=== PATIENT | female | born 1970 | race Caucasian/White ===

== ENCOUNTER 2021-11-18 21:48 | Emergency (ER) | payer BC, SELFPAY ==
[2021-11-18 22:09] VITALS: BP 134/79; PULSE 66; RESP 22; TEMP 36.8; O2SAT 94; BMI 28.9
--- NOTE | 2021-11-18 22:16 | ECG_ITS ---
[facility] Test Date: 2021-11-18 Pat Name: Faviola Alejandro Department: Room: Gender: Female Apron Trimmer: : 1970 Requested By: Gaby Lopez Order Number: [id number] Joaquín MD: José Antonio Mckeon M.D. Measurements Intervals [place] Rate: 65 P: 55 MN: 119 QRS: 57 QRSD: 82 T: 29 QT: 377 QTc: 393 Interpretive Statements SINUS RHYTHM WITH SHORT [place] INTERVAL POSSIBLE RIGHT VENTRICULAR CONDUCTION DELAY [RSR (QR) IN V1/V2] SEPTAL MYOCARDIAL INFARCTION , PROBABLY OLD [40+ ms Q WAVE IN V1/V2] Compared to ECG 08/09/2018 03:05:51 Short MN interval now present Myocardial infarct finding now present Electronically Signed On 11-19-2021 16:44:46 CDT by José Antonio Mckeon M.D. [id number]
--- NOTE | 2021-11-18 22:16 | XRR_ITS ---
PROCEDURE INFORMATION: Exam: XR Chest Exam date and time: 11/18/2021 10:49 PM Age: 51 years old Clinical indication: Shortness of breath; Additional info: SOB TECHNIQUE: Imaging protocol: Radiologic exam of the chest. Views: 1 view. COMPARISON: CR Chest 1 [place] [id number] 08/09/2018 2:53 AM FINDINGS: Lungs: Lungs are mildly hyperinflated not changed from previous. Visualized portions of the lungs are clear. Pleural spaces: Unremarkable. No pleural effusion. No pneumothorax. Heart/Mediastinum: Heart is within normal limits of size. Bones/joints: There is mild scoliosis concave to the left. XR/XR chest 1V portable [id number] IMPRESSION: No acute infiltrate.
[2021-11-18 22:42] VITALS: BP 133/93; PULSE 66; RESP 20; O2SAT 91
[2021-11-18 22:49] LABS: Basophils # 0.1 10^3/uL (0.0-0.1); Basophils % 0.6 %; Eosinophils % 9.1 %; Hematocrit 43.8 % (37.0-47.0); Hemoglobin 14.7 g/dL (11.5-15.3); Lymphocytes # 3.8 10^3/uL (0.8-4.8); Lymphocytes % 34.4 %; Mean Corpuscular HGB Conc 33.6 g/dL (30.0-36.0); Mean Corpuscular Hemoglobin 30.7 pg (28.0-34.0); Mean Corpuscular Volume 91.4 fl (81-99); Mean Platelet Volume 9.2 fL (7.4-10.4); Monocytes # 0.7 10^3/uL (0.2-0.9); Monocytes % 6.1 %; Neutrophils # 5.39 10^3/uL (1.8-7.7); Neutrophils % 49.4 %; Nucleated Red Blood Cells % 0 %; Platelet Count 281 10^3/cmm (130-400); Red Blood Count 4.79 10^6/uL (4.1-5.3); Red Cell Distribution Width 12.2 % (12.1-15.1); White Blood Count 10.9 10^3/uL (4.0-10.0)
--- NOTE | 2021-11-18 22:52 | W.ED.SOB ---
HPI - SOB/Dyspnea General: Chief Complaint: Shortness of Breath/Dyspnea Stated Complaint: SOB Time Seen by Provider: 11/18/21 22:40 Source: patient Mode of arrival: ambulatory Limitations: no limitations History of Present Illness: HPI Narrative: 51-year-old female who has a long history of asthma states over the last 5 to 6 days she has been having increasing wheezing along with cough and some dyspnea. She states she did her albuterol today with some relief but states she had been worsening. She states she was has exacerbations at this time the year and is having worsening dyspnea slight pain mainly with her cough denies any fever patient is able speak full sentences here. Associated symptoms: Reports chest pain; Deny abdominal pain, fever(s), nausea or vomiting Review of Systems Const: Denies: fever(s), chills, body aches or change in appetite Eyes: Denies: blurry vision or eye discomfort ENMT: Denies: throat pain or dental pain Card: Reports: chest pain Resp: Reports: dyspnea and non-productive cough GI: Denies: abdominal pain, nausea, vomiting or diarrhea : Denies: dysuria Musc: Denies: neck pain or back pain Skin/Breast: Denies: rash Neuro: Denies: headache(s) Psych: Denies: depression [place]/Lymph: Denies: easy bruising All/Imm: Denies: urticaria PFSH ED PFSH: Medical History (Updated 11/19/21 @ 00:25 by Gaby Lopez MD) Asthma Social History Smoking and tobacco status: former smoker Physical Exam Const: COMMON NORMALS: no acute distress, patient oriented x3 and healthy appearing HENMT: COMMON NORMALS: normocephalic and atraumatic HEAD & SCALP: normocephalic and atraumatic Eye: COMMON NORMALS: Equal, round and reactive pupils present and EOMs intact bilaterally PUPIL: Yes Equal, round and reactive pupils present Neck/C-Spine: COMMON NORMALS: full ROM and supple Chest: COMMONS NORMALS: normal inspection of the chest and normal palpation of entire chest wall Resp: COMMON NORMALS: normal respiratory effort, No retractions and No use of accessory muscles AUSCULTATION: wheezes Cardio: COMMON NORMALS: regular rate, regular rhythm and No murmurs present (Cardio) RATE: regular rate RHYTHM: regular rhythm GI: COMMON NORMALS: Normal to inspection, nondistended, normoactive bowel sounds present, Soft to palpation, non-tender and no masses PALPATION: Yes Soft to palpation Extremity: COMMON NORMALS: normal to inspection and full ROM Neuro: COMMON NORMALS: patient oriented x3, moves all extremities and no focal motor deficits Psych: COMMON NORMALS: mental status grossly normal, Normal thought process present and cooperative THOUGHT PROCESS: Normal thought process present Skin: COMMON NORMALS: no rashes or lesions noted and no wounds GENERAL SKIN EXAM: no rashes or lesions noted Course Vital Signs: Vital signs: Vital Signs Temperature 98.3 F 11/18/21 22:09 Pulse Rate 65 11/19/21 00:35 Respiratory Rate 18 11/19/21 00:35 Blood Pressure 138/89 11/19/21 00:35 Pulse Oximetry 92 11/19/21 00:35 MDM - SOB/Dyspnea Medical Decision Making Patient presents here with cough along with wheezing with likely asthma exacerbation and bronchitis patient is well-appearing here we will place patient on doxycycline along with 5-day steroid burst she is to continue to breathing treatments at home she feels improved here after breathing treatments. She is stable for discharge is to follow-up with PCP and return if worsening she understands and agrees to plan. Lab Data : 11/18/21 22:40 11/18/21 22:40 Labs/Radiology: Radiology Impressions Chest X-Ray 11/18/21 22:16 IMPRESSION: No acute infiltrate. Laboratory Results WBC 10.9 10^3/uL (4.0-10.0) H 11/18/21 22:40 RBC 4.79 10^6/uL (4.1-5.3) 11/18/21 22:40 Hgb 14.7 g/dL (11.5-15.3) 11/18/21 22:40 Hct 43.8 % (37.0-47.0) 11/18/21 22:40 MCV 91.4 fl (81-99) 11/18/21 22:40 MCH 30.7 pg (28.0-34.0) 11/18/21 22:40 MCHC 33.6 g/dL (30.0-36.0) 11/18/21 22:40 RDW 12.2 % (12.1-15.1) 11/18/21 22:40 Plt Count 281 10^3/cmm (130-400) 11/18/21 22:40 MPV 9.2 fL (7.4-10.4) 11/18/21 22:40 Neut % (Auto) 49.4 % 11/18/21 22:40 Lymph % (Auto) 34.4 % 11/18/21 22:40 [place] % (Auto) 6.1 % 11/18/21 22:40 Eos % (Auto) 9.1 % 11/18/21 22:40 Baso % (Auto) 0.6 % 11/18/21 22:40 Neut # (Auto) 5.39 10^3/uL (1.8-7.7) 11/18/21 22:40 Lymph # (Auto) 3.8 10^3/uL (0.8-4.8) 11/18/21 22:40 [place] # (Auto) 0.7 10^3/uL (0.2-0.9) 11/18/21 22:40 Eos # (Auto) 1.0 10^3/uL (0.0-0.8) H 11/18/21 22:40 Baso # (Auto) 0.1 10^3/uL (0.0-0.1) 11/18/21 22:40 Nucleated RBC % (auto) 0 % 11/18/21 22:40 Nucleated RBCs # 0.0 /100WBC 11/18/21 22:40 PT 12.20 SECONDS (12.1-14.9) 11/18/21 22:40 INR 0.88 (0.8-1.2) 11/18/21 22:40 Sodium 139 mmol/L (136-145) 11/18/21 22:40 Potassium 4.0 mmol/L (3.5-5.1) 11/18/21 22:40 Chloride 103 mmol/L (98-107) 11/18/21 22:40 Carbon Dioxide 24 mmol/L (22-29) 11/18/21 22:40 Anion Gap 16.0 (5-19) 11/18/21 22:40 BUN 14 mg/dL (6-20) 11/18/21 22:40 Creatinine 0.9 mg/dL (0.5-0.9) 11/18/21 22:40 GFR Calculation 65.5 mL/min (90-130) L 11/18/21 22:40 Glucose 88 mg/dL (65-115) 11/18/21 22:40 Calculated Osmolality 288 mOsm/kg (285-295) 11/18/21 22:40 Calcium 9.3 mg/dL (8.5-10.5) 11/18/21 22:40 Total Bilirubin 0.3 mg/dL (0.15-1.2) 11/18/21 22:40 AST 19 U/L (0-32) 11/18/21 22:40 ALT 15 U/L (0-33) 11/18/21 22:40 Alkaline Phosphatase 90 IU/L (35-105) 11/18/21 22:40 Troponin T Baseline 7 ng/L (0-10) 11/18/21 22:40 NT-Pro-B Natriuret Pep 94 pg/mL (0-125) 11/18/21 22:40 Total Protein 7.8 g/dL (6.6-8.7) 11/18/21 22:40 Albumin 4.6 g/dL (3.5-5.2) 11/18/21 22:40 Globulin 3.2 g/dL (1.3-4.6) 11/18/21 22:40 EKG Data EKG 1: I personally reviewed and interpreted this EKG as follows: EKG Interpretation Date: 11/18/21 EKG interpretation time: 22:37 Interpretation: nsr hr [address] or t wave abnormalities qrs 82 qtc 389 Discharge Plan Discharge Patient Disposition: Home Clinical Impression: Asthma with exacerbation Condition: Stable Prescriptions: New prednisone 50 mg tablet 50 mg PO DAILY Qty: 5 0RF doxycycline hyclate 100 mg tablet 100 mg PO BID 7 Days Qty: 14 0RF Discharge Orders: Discharge ED (Routine); Ordered 11/19/21 Ordered By: Gaby Lopez Referrals: Arielle New DO [Primary Care Provider] - Discharge Diet: Advance as tolerated Discharge Activity: Resume usual activity Patient Instructions: Asthma Exacerbation - Adult Coding Level of Care Code ED Senior Accounting Manager for Chg Fwd Exam Comprehensive
[2021-11-18 23:02] LABS: INR 0.88 (0.8-1.2)
[2021-11-18 23:09] LABS: Troponin(5th) Baseline 7 ng/L (0-10)
[2021-11-18 23:14] LABS: Alanine Aminotransferase 15 U/L (0-33); Albumin Level 4.6 g/dL (3.5-5.2); Alkaline Phosphatase 90 IU/L (35-105); Aspartate Amino Transferase 19 U/L (0-32); Blood Urea Nitrogen 14 mg/dL (6-20); Calcium 9.3 mg/dL (8.5-10.5); Carbon Dioxide 24 mmol/L (22-29); Chloride 103 mmol/L (98-107); Globulin 3.2 g/dL (1.3-4.6); Glomerular Filtration Rate 65.5 mL/min (90-130); Glucose 88 mg/dL (65-115); Osmolality Calculated 288 mOsm/kg (285-295); Sodium 139 mmol/L (136-145); Total Bilirubin 0.3 mg/dL (0.15-1.2); Total Protein 7.8 g/dL (6.6-8.7)
[2021-11-18 23:16] LABS: NT Pro B Type Natriuretic Pept 94 pg/mL (0-125)
[2021-11-18 23:42] VITALS: BP 163/97; PULSE 121; RESP 20; O2SAT 90
[2021-11-19 00:04] VITALS: PULSE 67; RESP 17; O2SAT 89
[2021-11-19] MEDS: ipratropium-albuterol 3 mL Neb INHALATION (00:04)
[2021-11-19 00:09] VITALS: PULSE 66; RESP 16; O2SAT 91
[2021-11-19 00:12] VITALS: BP 123/69; PULSE 66; RESP 18; O2SAT 92
[2021-11-19 00:30] VITALS: BP 138/89; PULSE 65; RESP 18; O2SAT 92
[2021-11-19 00:35] VITALS: BP 138/89; PULSE 65; RESP 18; O2SAT 92
[2021-11-19] MEDS: doxycycline 100 mg Tablet PO (00:41)
== END 2021-11-19 00:39 | disposition home or self-care (01) ==
PROVIDERS: Emergency Provider Emergency Medicine; PCP Family Medicine
DX: J45.901 Unspecified asthma with (acute) exacerbation (principal); Z87.891 Personal history of nicotine dependence
CPT/HCPCS: 71045; 80053; 83880; 84484; 85025; 85610; 93005; 94640; 96374; 99285; J2930

== ENCOUNTER 2022-04-23 14:36 | Inpatient (IN) | payer BC, SELFPAY ==
[2022-04-23] VITALS (8 sets, daily range): BP systolic 111–154; BP diastolic 57–70; PULSE 87–109; RESP 14–22; TEMP 37.1–37.8; O2SAT 91–97; BMI 29.2
--- NOTE | 2022-04-23 14:46 | XR_ITS ---
WS: [id number] EXAMINATION: XR chest 1V portable [id number] REASON FOR EXAM: sob COMPARISON: [id number] ORDER DATE: 04/23/2022 2:46 PM TECHNIQUE: A single, portable frontal chest x-ray was obtained. X-RAY FINDINGS: The lungs are clear. Pleural spaces are clear. No pleural effusions or pneumothorax. Cardiomediastinal silhouette is normal. No evidence for pulmonary edema. Soft tissue and osseous structures are unremarkable. No tubes or lines are present. XR/XR chest 1V portable [id number] IMPRESSION: Unremarkable frontal portable chest x-ray.
[2022-04-23 15:48] LABS: Basophils % 0.3 %; Eosinophils # 0.2 10^3/uL (0.0-0.8); Eosinophils % 3.8 %; Hematocrit 42.8 % (37.0-47.0); Hemoglobin 13.9 g/dL (11.5-15.3); Lymphocytes % 16.4 %; Mean Corpuscular HGB Conc 32.5 g/dL (30.0-36.0); Mean Corpuscular Volume 95.5 fl (81-99); Mean Platelet Volume 9.5 fL (7.4-10.4); Monocytes # 0.4 10^3/uL (0.2-0.9); Monocytes % 7.2 %; Nucleated Red Blood Cells % 0 %; Platelet Count 255 10^3/cmm (130-400); Red Blood Count 4.48 10^6/uL (4.1-5.3); Red Cell Distribution Width 12.4 % (12.1-15.1); White Blood Count 5.8 10^3/uL (4.0-10.0)
[2022-04-23 16:11] LABS: Troponin(5th) Baseline 7 ng/L (0-10)
[2022-04-23 16:14] LABS: Alanine Aminotransferase 15 U/L (0-33); Albumin Level 4.5 g/dL (3.5-5.2); Alkaline Phosphatase 88 U/L (35-105); Anion Gap 14.1 (5-19); Aspartate Amino Transferase 18 U/L (0-32); Blood Urea Nitrogen 11 mg/dL (6-20); Calcium 9.3 mg/dL (8.5-10.5); Carbon Dioxide 29 mmol/L (22-29); Chloride 101 mmol/L (98-107); Globulin 2.6 g/dL (1.3-4.6); Glucose 75 mg/dL (65-115); Osmolality Calculated 288 mOsm/kg (285-295); Potassium 4.1 mmol/L (3.5-5.1); Sodium 140 mmol/L (136-145); Total Bilirubin 0.2 mg/dL (0.15-1.2); Total Protein 7.1 g/dL (6.6-8.7)
--- NOTE | 2022-04-23 16:46 | ECG_ITS ---
[facility] Test Date: 2022-04-23 Pat Name: Faviola Alejandro Department: Room: Gender: Female Repair Order Clerk: : 1970 Requested By: Usama Pennington Order Number: [id number] Yanes MD: Rashawn Knapp M.D. Measurements Intervals [place] Rate: 109 P: 12 [place]: 99 QRS: 17 QRSD: 84 T: 18 QT: 311 QTc: 419 Interpretive Statements SINUS TACHYCARDIA WITH SHORT [place] INTERVAL SEPTAL MYOCARDIAL INFARCTION , PROBABLY OLD [40+ ms Q WAVE IN V1/V2] Compared to ECG 11/18/2021 22:37:22 Sinus rhythm no longer present Myocardial infarct finding still present Electronically Signed On 04-24-2022 10:17:15 CLOTH EXAMINER by Rashawn Knapp M.D. [id number]
[2022-04-23 16:53] LABS: Influenza A by IFA positive (Negative); Influenza B by IFA negative (Negative)
[2022-04-23 16:54] LABS: SARS Covid-2 Antigen negative (Negative)
--- NOTE | 2022-04-23 17:40 | W.ED.SOB ---
HPI - SOB/Dyspnea General: Chief Complaint: Upper Respiratory Infection Stated Complaint: SOB Time Seen by Provider: 04/23/22 17:25 Source: patient Limitations: no limitations History of Present Illness: HPI Narrative: See nursing assessments. Patient with complaints of shortness of breath that started today. Patient started running fever last night. She states she has had frequent cough productive of clear sputum. She states she is had mild chills. She states she has a past medical history of asthma. She states she is a former smoker and quit a long time ago. Denies any recent tobacco use. Associated symptoms: Reports fever(s); Deny abdominal pain, chest pain, nausea, palpitations or vomiting Review of Systems Const: Reports: fever(s), chills and body aches Eyes: Denies: change in vision ENMT: Denies: throat pain Card: Denies: chest pain or palpitations Resp: Reports: dyspnea and productive cough (Clear sputum) GI: Denies: abdominal pain, nausea or vomiting : Denies: flank pain Musc: Denies: neck pain, back pain or extremity swelling Skin/Breast: Denies: rash or pruritus Neuro: Denies: headache(s) or numbness in extremities Psych: Denies: anxiety [place]/Lymph: Denies: enlarged lymph nodes PFSH ED PFSH: Medical History Asthma Social History Smoking and tobacco status: former smoker Supplemental PFSH Information: Past medical history of asthma Physical Exam Const: COMMON NORMALS: patient oriented x3, no limitations and well nourished GENERAL APPEARANCE: cooperative OTHER: Mild fever HENMT: COMMON NORMALS: normocephalic and atraumatic HEAD & SCALP: normocephalic and atraumatic FACE & SINUS: normal facial exam Eye: COMMON NORMALS: EOMs intact bilaterally Neck/C-Spine: COMMON NORMALS: full ROM, no lymphadenopathy, supple and no meningeal signs GENERAL: Yes normal visual inspection Lymph: LYMPHATIC: no lymphadenopathy noted Chest: COMMONS NORMALS: normal inspection of the chest and normal palpation of entire chest wall CHEST: No Ecchymosis present and No rash Resp: OTHER: Patient with diffuse in-store next-door wheezes. Patient does sound somewhat tight. Patient is mildly anxious due to her shortness of breath and wheezing. Cardio: COMMON NORMALS: regular rate, regular rhythm and Peripheral pulses 2+ throughout JUGULAR VENOUS DISTENTION: no JVD RATE: regular rate RHYTHM: regular rhythm PERIPHERAL PULSES: Peripheral pulses 2+ throughout GI: COMMON NORMALS: Normal to inspection, nondistended, normoactive bowel sounds present and non-tender : COMMON NORMALS: Yes no CVA tenderness BLADDER/KIDNEY EXAM: Yes no CVA tenderness Back/Pelvis: COMMON NORMALS: no CVA tenderness Extremity: COMMON NORMALS: normal to inspection, full ROM and capillary refill normal Neuro: COMMON NORMALS: patient oriented x3, CN's II-XII intact bilaterally, no focal motor deficits and no sensory deficits noted MENINGEAL SIGNS: Yes no meningeal signs Psych: COMMON NORMALS: mental status grossly normal and Normal thought process present THOUGHT PROCESS: Normal thought process present OTHER: Mild anxiety. Skin: COMMON NORMALS: no rashes or lesions noted and no wounds GENERAL SKIN EXAM: no rashes or lesions noted Course Vital Signs: Vital signs: Vital Signs Temperature 100.1 F H 04/23/22 16:05 Pulse Rate 106 H 04/23/22 17:53 Respiratory Rate 22 H 04/23/22 17:50 Blood Pressure 150/62 04/23/22 18:00 Pulse Oximetry 92 04/23/22 18:00 Oxygen Delivery Me thod 04/23/22 18:00 Oxygen Flow Rate 1 04/23/22 18:00 MDM - SOB/Dyspnea Medical Decision Making Patient tested positive for influenza A. Patient also has exacerbation of her asthma with story and x-ray wheezes. Oxygen saturation ranges from 89 to 91% on room air. 1820: Patient was rechecked. Lungs are clear but oxygen saturation is 93% on 2 L by nasal cannula. Patient does not have oxygen at home. She states her nebulizer does not work very well. Therefore, patient will need to be observed overnight on oxygen and continue nebulizers as needed. Case discussed with hospitalist Dr. Olmedo. He agreed to observe the patient in the hospital. Lab Data 04/23/22 15:21 04/23/22 15:21 Labs/Radiology: Radiology Impressions Chest X-Ray 04/23/22 14:46 IMPRESSION: Unremarkable frontal portable chest x-ray. Laboratory Results WBC 5.8 10^3/uL (4.0-10.0) 04/23/22 15: RBC 4.48 10^6/uL (4.1-5.3) 04/23/22 15: Hgb 13.9 g/dL (11.5-15.3) 04/23/22 15:21 Hct 42.8 % (37.0-47.0) 04/23/22 15:21 MCV 95.5 fl (81-99) 04/23/22 15: MCH 31.0 pg (28.0-34.0) 04/23/22 15: MCHC 32.5 g/dL (30.0-36.0) 04/23/22 15: RDW 12.4 % (12.1-15.1) 04/23/22 15: Plt Count 255 10^3/cmm (130-400) 04/23/22 15:21 MPV 9.5 fL (7.4-10.4) 04/23/22 15: Neut % (Auto) 72.0 % 04/23/22 15:21 Lymph % (Auto) 16.4 % 04/23/22 15:21 [place] % (Auto) 7.2 % 04/23/22 15: Eos % (Auto) 3.8 % 04/23/22 15: Baso % (Auto) 0.3 % 04/23/22 15:21 Neut # (Auto) 4.20 10^3/uL (1.8-7.7) 04/23/22 15:21 Lymph # (Auto) 1.0 10^3/uL (0.8-4.8) 04/23/22 15:21 [place] # (Auto) 0.4 10^3/uL (0.2-0.9) 04/23/22 15:21 Eos # (Auto) 0.2 10^3/uL (0.0-0.8) 04/23/22 15:21 Baso # (Auto) 0.0 10^3/uL (0.0-0.1) 04/23/22 15:21 Nucleated RBC % (auto) 0 % 04/23/22 15: Nucleated RBCs # 0.0 /100WBC 04/23/22 15:21 Sodium 140 mmol/L (136-145) 04/23/22 15:21 Potassium 4.1 mmol/L (3.5-5.1) 04/23/22 15:21 Chloride 101 mmol/L (98-107) 04/23/22 15:21 Carbon Dioxide 29 mmol/L (22-29) 04/23/22 15:21 Anion Gap 14.1 (5-19) 04/23/22 15:21 BUN 11 mg/dL (6-20) 04/23/22 15:21 Creatinine 1.0 mg/dL (0.5-0.9) H 04/23/22 15:21 GFR Calculation 58.0 mL/min (90-130) L 04/23/22 15:21 Glucose 75 mg/dL (65-115) 04/23/22 15:21 Calculated Osmolality 288 mOsm/kg (285-295) 04/23/22 15:21 Calcium 9.3 mg/dL (8.5-10.5) 04/23/22 15:21 Total Bilirubin 0.2 mg/dL (0.15-1.2) 04/23/22 15:21 AST 18 U/L (0-32) 04/23/22 15:21 ALT 15 U/L (0-33) 04/23/22 15:21 Alkaline Phosphatase 88 U/L (35-105) 04/23/22 15:21 Troponin T Baseline 7 ng/L (0-10) 04/23/22 15:21 Troponin T 120 Minute 7.18 ng/L (0-10) 04/23/22 17:38 Total Protein 7.1 g/dL (6.6-8.7) 04/23/22 15:21 Albumin 4.5 g/dL (3.5-5.2) 04/23/22 15:21 Globulin 2.6 g/dL (1.3-4.6) 04/23/22 15:21 Influenza Type A Ag positive (Negative) H 04/23/22 Unknown Influenza Type B Ag negative (Negative) 04/23/22 Unknown SARS-CoV-2 Ag (Rapid) negative (Negative) 04/23/22 Unknown Imaging Data CXR: Radiologist's impression: Ordering Provider/Ordering MD: Usama Pennington Date of Service: 04/23/22 Procedure(s): XR chest 1V portable [id number] Accession Number(s): [id number] Report Number: [id number] WS: [id number] EXAMINATION: XR chest 1V portable [id number] REASON FOR EXAM: sob COMPARISON: [id number] ORDER DATE:? 04/23/2022 2:46 PM TECHNIQUE: A single, portable frontal chest x-ray was obtained. X-RAY FINDINGS: The lungs are clear. Pleural spaces are clear. No pleural effusions or pneumothorax. Cardiomediastinal silhouette is normal. No evidence for pulmonary edema. Soft tissue and osseous structures are unremarkable. No tubes or lines are present. XR/XR chest 1V portable [id number] IMPRESSION: ?Unremarkable frontal portable chest x-ray. ? Dictated By: Dell Mckenzie MD Signed By: Dell Mckenzie MD Signed Date/Time: 04/23/22 1520 EKG Data EKG 1: I personally reviewed and interpreted this EKG as follows: EKG Interpretation Date: 04/23/22 EKG interpretation time: 17:50 Interpretation: Heart rate of 1Impression sinus tachycardia overnight. Normal [place] interval. Artifact from tremor. Normal axis. Normal QRS. Normal ST segment. Normal QT interval. Normal [place] interval. Normal P waves, normal T waves. Discharge Plan Discharge Patient Disposition: Placed in Observation Clinical Impression: Influenza, Shortness of breath at rest Asthma Qualifiers: Asthma severity: moderate Asthma persistence: unspecified Asthma complication type: with acute exacerbation Qualified Code(s): J45.901 - Unspecified asthma with (acute) exacerbation Coding Level of Care Code ED Hr Receptionist for [facility] Fwarielle History Comprehensive Exam Comprehensive Medical Decision Making Moderate Complexity
[2022-04-23] MEDS: ipratropium-albuterol 3 mL Neb INHALATION ×2 (17:46→20:49)
[2022-04-23] MEDS: oseltamivir phosphate 75 mg Capsule PO (17:48)
[2022-04-23] MEDS: acetaminophen 325 mg Tablet 650 MG PO (17:48)
[2022-04-23 18:19] LABS: Troponin 5 2HR 7.18 ng/L (0-10)
[2022-04-23 18:27] LABS: Troponin 5 2HR Delta 0.18 ABS# (0-10)
--- NOTE | 2022-04-23 18:32 | P.HP_ITS ---
Providers/Chief Complaint Primary Care Provider: Arielle New DO Chief Complaint: SOB History of Present Illness Faviola Alejandro is a 51 year old female with past medical history of asthma was brought in with chief complaint of acutely worsening shortness of breath, cough with productive whitish sputum started today, experiencing subjective fever with chills,since yesterday. X-ray chest done in the ER; has not shown any acute infiltrates, no effusion no pneumothorax. Pertinent labs: WBC 5.8, H&H plt : 255 , sodium 140 potassium 4.1, BUN serum creatinine :03/18 , Influenza A+ Patient received nebs as well as Solu-Medrol in the ER Review of Systems General: Reports: 10 or more systems reviewed and unremarkable except in HPI and below Const: Reports: fever(s), chills and body aches; Denies: change in appetite or diaphoresis Card: Denies: palpitations, edema, swelling of feet/ankles, dyspnea on exertion, orthopnea or leg pain with exertion Resp: Reports: dyspnea, productive cough and wheezing; Denies: pain on inspiration GI: Denies: abdominal pain, nausea, vomiting, diarrhea or constipation : Denies: flank pain Musc: Denies: back pain, extremity pain or extremity swelling Neuro: Denies: headache(s), difficulty walking or confusion Medications/Allergies Home Medications Medication Instructions Recorded Confirmed Last Taken Type prednisone 50 mg tablet 50 mg PO DAILY #5 tabs 11/19/21 Unknown Rx Allergies Allergy/AdvReac Type Severity Reaction Status Date / Time Latex, Natural Rubber Allergy ALGY-Hives Verified 11/18/21 22:09 PFSH Acute PFSH: Medical History Asthma Social History Smoking and tobacco status: former smoker Vitals/I&O/Wt Last Vital Signs Temp 100.1 F H 04/23/22 16:05 Pulse 106 H 04/23/22 17:53 Resp 22 H 04/23/22 17:50 BP 150/62 04/23/22 18:00 Pulse Ox 92 04/23/22 18:00 O2 Del Method 04/23/22 18:00 O2 Flow Rate 1 04/23/22 18:00 Weight last 48 hrs Weight 72.575 kg Physical Exam Const: COMMON NORMALS: patient oriented x3 Resp: OTHER: Tachypneic tachycardic, diminished air entry bilaterally, minimal expiratory wheezing Cardio: COMMON NORMALS: regular rate, regular rhythm, S1 normal heart sound present, S2 normal heart sound present, No gallops present (Cardio), No murmurs present (Cardio), No rub (Cardio) and Peripheral pulses 2+ throughout RATE: regular rate RHYTHM: regular rhythm HEART SOUNDS: S1 normal heart sound present and S2 normal heart sound present PERIPHERAL PULSES: Peripheral pulses 2+ throughout GI: COMMON NORMALS: Normal to inspection, nondistended, normoactive bowel sounds present, Soft to palpation, non-tender, No hepatosplenomegaly present and no masses AUSCULTATION: Yes normoactive bowel sounds PALPATION: Yes Soft to palpation and Yes No hepatosplenomegaly present RECTAL EXAM: deferred Extremity: COMMON NORMALS: no clubbing, cyanosis or edema and no pedal edema Data 04/23/22 15:21 04/23/22 15:21 A&P Assessment and plan (1) Influenza: (2) Asthma exacerbation: Plan 51 year old female with past medical history of asthma was brought in with chief complaint of acutely worsening shortness of breath, cough with productive whitish sputum started today, experiencing subjective fever with chills,since yesterday. Patient has received flu shot this year. Assessment: Acute asthma exacerbation secondary to influenza Influenza A Hypertension Plan: Follow procalcitonin Continue Solu-Medrol 60 every 6 DuoNebs Magnesium sulfate IV 2 g Continue Tamiflu Monitor x-ray chest Antitussives DVT prophylaxis: On Lovenox CODE STATUS; full code Attestations Medical Necessity Statement*: Patient is in hospital for management of asthma exacerbation and influenza. Time Spent in Patient Care: Greater than 35 minutes (>than 50% of time spe nt in counselling and/or direct pt care on unit) . Coding Level of Care Code Acute Rigging Up Man for Jeang Fwd Exam Expanded Problem Focused Diagnoses Influenza J11.1 Asthma exacerbation J45.901
--- NOTE | 2022-04-23 19:22 | PC.NURSE ---
Gave report to Carlos Merida
[2022-04-23] MEDS: enoxaparin 40 mg/0.4 mL Syringe SUBCUT (19:33)
[2022-04-23] MEDS: magnesium sulfate premix 2 GM/50 ML PIGGYBACK IV (19:33)
[2022-04-23] MEDS: benzonatate 100 mg Capsule 200 MG PO (20:20)
[2022-04-23] MEDS: sodium chloride 0.9% 1,000 ML 100 ML IV (20:21)
[2022-04-23 21:13] LABS: Troponin 5 6HR 10.33 ng/L (0-10)
[2022-04-23 21:14] LABS: Troponin 5 6HR Delta 3.33 ng/L (0-12)
[2022-04-24] VITALS (10 sets, daily range): BP systolic 110–143; BP diastolic 65–77; PULSE 67–91; RESP 14–26; TEMP 36.4–37.1; O2SAT 91–97
[2022-04-24] MEDS: ipratropium-albuterol 3 mL Neb INHALATION ×4 (01:37→20:31)
[2022-04-24 02:14] LABS: Basophils % 0.2 %; Eosinophils % 0.2 %; Hematocrit 41.9 % (37.0-47.0); Hemoglobin 13.5 g/dL (11.5-15.3); Lymphocytes # 0.5 10^3/uL (0.8-4.8); Lymphocytes % 9.1 %; Mean Corpuscular HGB Conc 32.2 g/dL (30.0-36.0); Mean Corpuscular Hemoglobin 30.8 pg (28.0-34.0); Mean Corpuscular Volume 95.4 fl (81-99); Mean Platelet Volume 9.6 fL (7.4-10.4); Monocytes # 0.1 10^3/uL (0.2-0.9); Monocytes % 1.8 %; Neutrophils # 4.46 10^3/uL (1.8-7.7); Neutrophils % 88.3 %; Nucleated Red Blood Cells % 0 %; Platelet Count 240 10^3/cmm (130-400); Red Blood Count 4.39 10^6/uL (4.1-5.3); Red Cell Distribution Width 12.4 % (12.1-15.1); White Blood Count 5.1 10^3/uL (4.0-10.0)
[2022-04-24 02:36] LABS: Blood Urea Nitrogen 12 mg/dL (6-20); Calcium 9.2 mg/dL (8.5-10.5); Carbon Dioxide 26 mmol/L (22-29); Chloride 105 mmol/L (98-107); Glucose 151 mg/dL (65-115); Magnesium 2.3 mg/dL (1.7-2.3); Osmolality Calculated 293 mOsm/kg (285-295); Sodium 140 mmol/L (136-145)
[2022-04-24 02:41] LABS: Procalcitonin 0.08 ng/mL (0-0.5)
[2022-04-24] MEDS: sodium chloride 0.9% 1,000 ML 100 ML IV (05:27)
[2022-04-24] MEDS: benzonatate 100 mg Capsule 200 MG PO ×3 (08:44→20:20)
[2022-04-24] MEDS: oseltamivir phosphate 75 mg Capsule PO ×2 (09:04→17:10)
--- NOTE | 2022-04-24 10:34 | PC.CHAP ---
Pastoral Care Encounter/Spiritual Assessment Type of Contact [] Declined resource development manager visit [] Patient/Family/Request visit [] Outpatient visit [] Follow-up visit [] Physician referral [] Code/Alert [] Routine visit [] Staff referral [] Actively dying [] Patient sleeping [] Family support [] [] Out of room [] Palliative care [] [] Receiving care in room [] Pre-surgical visit [] Trauma [] Long length of stay [] ICU visit [x] Other: Isolation Relational/Emotional Strength [] Patient feels connected with others/family/visitors/staff [] Distress [] Loneliness/isolation [] Abandonment Spirituality of Patient [] Person of Elaine [] Attends Christianity of their Elaine [] Believes in Prayer [] Reads Bible or Gnosticism materials [] There are Spiritual issues to be addressed Grinding And Spraying Supervisor Interventions [] Prayer [] Active listening [] Non-anxious presence [] Spiritual/emotional support [] Crisis/trauma care [] Spiritual counseling [] Bereavement support [] Provided bereavement packet [] Provided Bible/devotional materials [] Provided toy/stuffed animal, coloring book to patient or family member [] Provided Communion [] Anointing/[place] [] Salvation [] Completed spiritual assessment [] Other: Impact on Illness or Injury [] Angry [] Fearful [] Anxious [] Often cries [] Exhaustion [] Unable to work [] Unable to attend lutheran [] Unable to walk/stand [] Unable to read [] Unable to drive [] Unable to eat/drink [] Unable to sleep [] Unable to be with family [] Patient intubated [] Other: Summary Isolation Time spent with patient 5 mins
--- NOTE | 2022-04-24 12:08 | P.PN_ITS ---
Subjective Subjective: Ms. Alejadnro continues to be extremely short of breath with exertion, has significant coughing. Will increase the dose of his steroid for now. We will plan to do repeat a.m. chest x-ray. Medications: Medication Review Details: Generic Name Dose Route Start Last Admin Trade Name Heber PRN Reason Stop Dose Admin Albuterol/Ipratrop ium 3 ml 04/24/22 12:00 04/24/22 11:45 Ipratropium-Albu terol 3 Ml Neb INHALATION 3 ml Q4H.RESPIRATORY S CH Administration Benzonatate 200 mg 04/23/22 21:00 04/24/22 08:44 Benzonatate 100 Mg Capsule PO 200 mg TID JONI Administration Enoxaparin Sodium 40 mg 04/23/22 20:00 04/23/22 19:33 Enoxaparin 40 Mg /0.4 Ml Syringe SUBCUT 40 mg Q24H JONI Administration Oseltamivir Phosph ate 75 mg 04/24/22 09:00 04/24/22 09:04 Oseltamivir Phos phate 75 Mg Capsul e PO 75 mg BID JONI Administration Vitals/I&O/Wt Last Vital Signs Temp 98.5 F 04/24/22 11:43 Pulse 83 04/24/22 11:45 Resp 18 04/24/22 11:45 BP 143/77 04/24/22 11:43 Pulse Ox 97 04/24/22 11:45 O2 Del Method 04/24/22 11:45 O2 Flow Rate 1.5 04/24/22 11:45 04/23/22 04/24/22 04/24/22 22:59 06:59 14:59 Intake Total 60 / 60 910 / 970 1410 / 1410 Balance 60 / 60 910 / 970 1410 / 1410 Weight last 48 hrs Weight 72.575 kg Physical Exam Const: COMMON NORMALS: patient oriented x3 Resp: OTHER: diminished air entry bilaterally Cardio: COMMON NORMALS: regular rate, regular rhythm, S1 normal heart sound present, S2 normal heart sound present, No gallops present (Cardio), No murmurs present (Cardio), No rub (Cardio) and Peripheral pulses 2+ throughout RATE: regular rate RHYTHM: regular rhythm HEART SOUNDS: S1 normal heart sound present and S2 normal heart sound present PERIPHERAL PULSES: Peripheral pulses 2+ throughout GI: COMMON NORMALS: Normal to inspection, nondistended, normoactive bowel sounds present, Soft to palpation, non-tender, No hepatosplenomegaly present and no masses AUSCULTATION: Yes normoactive bowel sounds PALPATION: Yes Soft to palpation and Yes No hepatosplenomegaly present RECTAL EXAM: deferred Extremity: COMMON NORMALS: no clubbing, cyanosis or edema and no pedal edema Neuro: COMMON NORMALS: patient oriented x3 Data 04/24/22 01:44 04/24/22 01:44 A&P Assessment and plan (1) Influenza: (2) Asthma exacerbation: Plan 51 year old female with past medical history of asthma was brought in with chief complaint of acutely worsening shortness of breath, cough with productive whitish sputum started today, experiencing subjective fever with chills,since yesterday. Patient has received flu shot this year. Assessment: Acute asthma exacerbation secondary to influenza Influenza A Hypertension Plan: Follow procalcitonin: 0.08 Continue Solu-Medrol 60 every 4H DuoNebs Magnesium sulfate IV 2 g Continue Tamiflu Monitor x-ray chest Antitussives DVT prophylaxis: On Lovenox CODE STATUS; full code Attestations Medical Necessity Statement*: Patient in hospital for management of asthma exacerbation. Coding Level of Care Code Acute Missionary Coordinator for Jennifer Melendez Diagnoses Influenza J11.1 Asthma exacerbation J45.901
[2022-04-24] MEDS: enoxaparin 40 mg/0.4 mL Syringe SUBCUT (20:20)
[2022-04-24] MEDS: budesonide 0.5 mg/2 mL Neb INHALATION (20:31)
[2022-04-25] VITALS (7 sets, daily range): BP systolic 116–136; BP diastolic 72–76; PULSE 81–90; RESP 14–21; TEMP 36.7–36.9; O2SAT 90–93
[2022-04-25 03:09] LABS: Basophils % 0.1 %; Hematocrit 39.6 % (37.0-47.0); Hemoglobin 12.8 g/dL (11.5-15.3); Lymphocytes # 0.8 10^3/uL (0.8-4.8); Lymphocytes % 5.6 %; Mean Corpuscular HGB Conc 32.3 g/dL (30.0-36.0); Mean Corpuscular Hemoglobin 30.7 pg (28.0-34.0); Mean Platelet Volume 9.4 fL (7.4-10.4); Monocytes # 0.3 10^3/uL (0.2-0.9); Monocytes % 2.1 %; Neutrophils # 13.11 10^3/uL (1.8-7.7); Neutrophils % 91.7 %; Nucleated Red Blood Cells % 0 %; Platelet Count 235 10^3/cmm (130-400); Red Blood Count 4.17 10^6/uL (4.1-5.3); Red Cell Distribution Width 12.5 % (12.1-15.1); White Blood Count 14.3 10^3/uL (4.0-10.0)
[2022-04-25] MEDS: ipratropium-albuterol 3 mL Neb INHALATION ×2 (03:19→07:30)
[2022-04-25 03:27] LABS: D Dimer 0.52 ug/mIFEU (0-0.59)
[2022-04-25 03:33] LABS: Anion Gap 11.4 (5-19); Blood Urea Nitrogen 15 mg/dL (6-20); Calcium 8.9 mg/dL (8.5-10.5); Carbon Dioxide 26 mmol/L (22-29); Chloride 108 mmol/L (98-107); Glucose 142 mg/dL (65-115); Osmolality Calculated 295 mOsm/kg (285-295); Potassium 4.4 mmol/L (3.5-5.1); Sodium 141 mmol/L (136-145)
--- NOTE | 2022-04-25 05:00 | XR_ITS ---
WS: [id number] EXAMINATION: XR chest 1V portable [id number] REASON FOR EXAM: sob COMPARISON: 04/23/2022 ORDER DATE: 04/25/2022 5:17 AM TECHNIQUE: A single, portable frontal chest x-ray was obtained. X-RAY FINDINGS: The lungs are clear. Pleural spaces are clear. No pleural effusions or pneumothorax. Cardiomediastinal silhouette is normal. No evidence for pulmonary edema. Soft tissue and osseous structures are unremarkable. No tubes or lines are present. XR/XR chest 1V portable [id number] IMPRESSION: Unremarkable frontal portable chest x-ray.
[2022-04-25] MEDS: budesonide 0.5 mg/2 mL Neb INHALATION (07:30)
[2022-04-25] MEDS: benzonatate 100 mg Capsule 200 MG PO (08:03)
[2022-04-25] MEDS: oseltamivir phosphate 75 mg Capsule PO (08:03)
--- NOTE | 2022-04-25 10:23 | PM.DCS ---
Discharge Providers Date of Admission: 04/23/22 18:28 Date of Discharge: April 25, 2022 Attending Provider at Admission: Andres Olmedo MD Attending Provider at Discharge: Andres Olmedo MD Primary Care Provider: Arielle New DO Diagnoses at Discharge Discharge Diagnosis (1) Influenza: Status: Acute (2) Asthma exacerbation: Status: Acute Reason for Visit Reason for Visit: SOB Hospital Course Hospital Course Faviola Alejandro is a 51 year old female with past medical history of asthma was brought in with chief complaint of acutely worsening shortness of breath, cough with productive whitish sputum started , experiencing subjective fever with chills,since of 1 day duration.X-ray chest done in the ER; has not shown any acute infiltrates, no effusion no pneumothorax.She was found to be influenza A positive, she was admitted for the management of acute asthma exacerbation, likely secondary to influenza A: She was kept on IV steroids, duo nebs, received magnesium sulfate IV, Tamiflu, supplemental oxygen as needed, IV fluids, antitussives, x-ray chest was monitored, she responded well to above medical management and was discharged home in stable condition, she will complete 5-day course of Tamiflu, Has been discharged on p.o. prednisone, for another 7 days, as well as antitussives. She will follow with her primary care physician's office. Physical Exam Const: COMMON NORMALS: patient oriented x3 Resp: OTHER: Clear to auscultation bilaterally Cardio: COMMON NORMALS: regular rate, regular rhythm, S1 normal heart sound present, S2 normal heart sound present, No gallops present (Cardio), No murmurs present (Cardio), No rub (Cardio) and Peripheral pulses 2+ throughout RATE: regular rate RHYTHM: regular rhythm HEART SOUNDS: S1 normal heart sound present and S2 normal heart sound present PERIPHERAL PULSES: Peripheral pulses 2+ throughout GI: COMMON NORMALS: Normal to inspection, nondistended, normoactive bowel sounds present, Soft to palpation, non-tender, No hepatosplenomegaly present and no masses AUSCULTATION: Yes normoactive bowel sounds PALPATION: Yes Soft to palpation and Yes No hepatosplenomegaly present RECTAL EXAM: deferred Extremity: COMMON NORMALS: no clubbing, cyanosis or edema and no pedal edema Neuro: COMMON NORMALS: patient oriented x3 Discharge Data Studies Completed and Pending Completed Studies During Hospitalization Category Date Time Status XR chest 1V portable [id number] Routine Exams 04/25/22 05:00 Completed XR chest 1V portable [id number] Stat Exams 04/23/22 14:46 Completed Pending at discharge Category Date Time Status Basic Metabolic Panel AM LABS Lab 04/26/22 04:00 Ordered CBC Auto Diff [Complete Blood Count w/Auto] AM LABS Lab 04/26/22 04:00 Ordered Sputum Culture and Gram Stain Routine Lab 04/24/22 16:35 Received Radiology Impressions Chest X-Ray 04/25/22 05:00 IMPRESSION: Unremarkable frontal portable chest x-ray. Laboratory Results WBC 14.3 10^3/uL (4.0-10.0) H 04/25/22 02:55 RBC 4.17 10^6/uL (4.1-5.3) 04/25/22 02:55 Hgb 12.8 g/dL (11.5-15.3) 04/25/22 02:55 Hct 39.6 % (37.0-47.0) 04/25/22 02:55 MCV 95.0 fl (81-99) 04/25/22 02:55 MCH 30.7 pg (28.0-34.0) 04/25/22 02:55 MCHC 32.3 g/dL (30.0-36.0) 04/25/22 02:55 RDW 12.5 % (12.1-15.1) 04/25/22 02:55 Plt Count 235 10^3/cmm (130-400) 04/25/22 02:55 MPV 9.4 fL (7.4-10.4) 04/25/22 02:55 Neut % (Auto) 91.7 % 04/25/22 02:55 Lymph % (Auto) 5.6 % 04/25/22 02:55 [place] % (Auto) 2.1 % 04/25/22 02:55 Eos % (Auto) 0.0 % 04/25/22 02:55 Baso % (Auto) 0.1 % 04/25/22 02:55 Neut # (Auto) 13.11 10^3/uL (1.8-7.7) H 04/25/22 02:55 Lymph # (Auto) 0.8 10^3/uL (0.8-4.8) 04/25/22 02:55 [place] # (Auto) 0.3 10^3/uL (0.2-0.9) 04/25/22 02:55 Eos # (Auto) 0.0 10^3/uL (0.0-0.8) 04/25/22 02:55 Baso # (Auto) 0.0 10^3/uL (0.0-0.1) 04/25/22 02:55 Nucleated RBC % (auto) 0 % 04/25/22 02:55 Nucleated RBCs # 0.0 /100WBC 04/25/22 02:55 D-Dimer 0.52 ug/mIFEU (0-0.59) 04/25/22 02:55 Sodium 141 mmol/L (136-145) 04/25/22 02:55 Potassium 4.4 mmol/L (3.5-5.1) 04/25/22 02:55 Chloride 108 mmol/L (98-107) H 04/25/22 02:55 Carbon Dioxide 26 mmol/L (22-29) 04/25/22 02:55 Anion Gap 11.4 (5-19) 04/25/22 02:55 BUN 15 mg/dL (6-20) 04/25/22 02:55 Creatinine 0.8 mg/dL (0.5-0.9) 04/25/22 02:55 GFR Calculation 75.0 mL/min (90-130) L 04/25/22 02:55 Glucose 142 mg/dL (65-115) H 04/25/22 02:55 Calculated Osmolality 295 mOsm/kg (285-295) 04/25/22 02:55 Lactic Acid 2.0 mmol/L (0.5-2.2) 04/24/22 01:44 Calcium 8.9 mg/dL (8.5-10.5) 04/25/22 02:55 Magnesium 2.3 mg/dL (1.7-2.3) 04/24/22 01:44 Total Bilirubin 0.2 mg/dL (0.15-1.2) 04/23/22 15:21 AST 18 U/L (0-32) 04/23/22 15:21 ALT 15 U/L (0-33) 04/23/22 15:21 Alkaline Phosphatase 88 U/L (35-105) 04/23/22 15:21 Troponin T Baseline 7 ng/L (0-10) 04/23/22 15:21 Troponin T 120 Minute 7.18 ng/L (0-10) 04/23/22 17:38 Delta Troponin T 0.18 ABS# (0-10) 04/23/22 17:38 Troponin T Hi Sens 6Hr 10.33 ng/L (0-10) H 04/23/22 20:42 Troponin T Hi Sens 6Hr Delta 3.33 ng/L (0-12) 04/23/22 20:42 Total Protein 7.1 g/dL (6.6-8.7) 04/23/22 15:21 Albumin 4.5 g/dL (3.5-5.2) 04/23/22 15:21 Globulin 2.6 g/dL (1.3-4.6) 04/23/22 15:21 Procalcitonin 0.08 ng/mL (0-0.5) 04/24/22 01:44 Influenza Type A Ag positive (Negative) H 04/23/22 Unknown Influenza Type B Ag negative (Negative) 04/23/22 Unknown SARS-CoV-2 Ag (Rapid) negative (Negative) 04/23/22 Unknown Vitals Last Vital Signs Temp 98.4 F 04/25/22 07:59 Pulse 90 04/25/22 07:59 Resp 18 04/25/22 07:59 BP 131/73 04/25/22 07:59 Pulse Ox 90 04/25/22 07:59 O2 Del Method 04/25/22 07:59 O2 Flow Rate 1 04/25/22 03:20 Discharge Plan Discharge Patient Disposition: Home Condition: Stable Prescriptions: New benzonatate 100 mg Capsule 200 mg PO TID 7 Days Qty: 42 0RF oseltamivir 75 mg Capsule 75 mg PO BID 4 Days Qty: 8 0RF prednisone 20 mg tablet 40 mg PO DAILY 7 Days Qty: 28 0RF Continued lisinopril 20 mg tablet 20 mg PO QAM betamethasone, augmented 0.05 % cream 1 applic TOPICAL BID PRN (Reason: unknown) lorazepam 0.5 mg tablet 0.5 mg PO DAILY PRN (Reason: Anxiety) albuterol sulfate 90 mcg/actuation HFA aerosol inhaler 2 puff INHALATION Q6H PRN (Reason: Shortness Of Breath) Symbicort 160-4.5 mcg/actuation HFA aerosol inhaler 1 puff INHALATION BID Discharge Orders: Discharge Order (Routine); Ordered 04/25/22 Ordered By: Andres Olmedo Referrals: Arielle New DO [Primary Care Provider] - 05/01/22 10:00 am Patient Instructions: Asthma Exacerbation - Adult, Benzonatate (By mouth), Tamoxifen (By mouth), Prednisone (By mouth), Influenza (DC), Opioid Safety Discharge Attestations Time Spent in Discharge Care*: greater than 30 min Quality Metrics Clinical Quality Measures [ No reported AMI, CVA or VTE this stay] Coding Level of Care Code Acute Chg FW DC note Exam Expanded Problem Focused Diagnoses Influenza J11.1 Asthma exacerbation J45.901
--- NOTE | 2022-04-25 11:16 | PC.CHAP ---
Pastoral Care Encounter/Spiritual Assessment Type of Contact [] Declined machine boss visit [] Patient/Family/Request visit [] Outpatient visit [] Follow-up visit [] Physician referral [] Code/Alert [x] Routine visit [] Staff referral [] Actively dying [] Patient sleeping [] Family support [] [] Out of room [] Palliative care [] [] Receiving care in room [] Pre-surgical visit [] Trauma [] Long length of stay [] ICU visit [] Other: Relational/Emotional Strength [x] Patient feels connected with others/family/visitors/staff [] Distress [] Loneliness/isolation [] Abandonment Spirituality of Patient [x] Person of Elaine [] Attends Zoroastrianism of their Elaine [x] Believes in Prayer [] Reads Bible or Catholic materials [] There are Spiritual issues to be addressed Vice President Of Software Engineering Interventions [x] Prayer [] Active listening [] Non-anxious presence [] Spiritual/emotional support [] Crisis/trauma care [] Spiritual counseling [] Bereavement support [] Provided bereavement packet [x] Provided Bible/devotional materials [] Provided toy/stuffed animal, coloring book to patient or family member [] Provided Communion [] Anointing/[place] [] Salvation [] Completed spiritual assessment [] Other: Impact on Illness or Injury [] Angry [] Fearful [] Anxious [] Often cries [] Exhaustion [] Unable to work [] Unable to attend jain [] Unable to walk/stand [] Unable to read [] Unable to drive [] Unable to eat/drink [] Unable to sleep [] Unable to be with family [] Patient intubated [] Other: Summary Time spent with patient 15 min
== END 2022-04-25 14:31 | disposition home or self-care (01) | DRG 194 ==
LOC: ER 18:34 → MEDSURG 19:40
PROVIDERS: Family Medicine; Physician Assistant; Admitting Provider Internal Medicine; Emergency Provider Family Medicine; PCP Family Medicine; Visit Provider Internal Medicine
DX: J10.1 Influenza due to other identified influenza virus with other respiratory manifestations (principal); J45.901 Unspecified asthma with (acute) exacerbation; Z79.51 Long term (current) use of inhaled steroids; Z87.891 Personal history of nicotine dependence; I10 Essential (primary) hypertension
CPT/HCPCS: 36415; 71045; 80048; 80053; 83605; 83735; 84145; 84484; 85025; 85378; 87070; 87205; 87426; 87804; 93005; 94640; 96365; 96372; 96375; 96376; 99285; J1650; J2930; J3475; J7030; J7626

== ENCOUNTER 2023-02-27 13:05 | Outpatient (CLI) | payer OTHER, SELFPAY ==
--- NOTE | 2023-02-27 13:36 | XR_ITS ---
WS: [id number] Cervical spine, 4 views, 02/27/2023 Clinical Data: CHRONIC NECK PAIN Comparison: None. Findings: No compression fractures are seen. There is degenerative disc narrowing at C5-C6. There is loss of the normal lordotic curvature. There is no prevertebral soft tissue swelling. The odontoid is unremarkable. The soft tissues of the neck and the lung apices are normal. Impression: Degenerative disc narrowing at C5-C6.
--- NOTE | 2023-02-27 13:37 | XR_ITS ---
WS: [id number] Right shoulder, 3 views, 02/27/2023 Clinical Data: CHRONIC RIGHT SHOULDER PAIN Comparison: None. Findings: No fractures or dislocations are seen. The AC joint is normal. The adjacent right clavicle, right sca pula and ribs are normal. The soft tissues are unremarkable. Impression: Negative right shoulder.
== END 2023-02-27 13:06 | disposition home or self-care (01) ==
PROVIDERS: PCP Family Medicine; Visit Provider Family Medicine
DX: M50.322 Other cervical disc degeneration at C5-C6 level (principal); M25.511 Pain in right shoulder
CPT/HCPCS: 72040; 73030